=== PATIENT | male | born 1995 | race Caucasian/White ===

== ENCOUNTER 2018-11-05 12:52 | Emergency (ER) | payer OTHER ==
[~2018-11-05] VITALS: Ht 167.6 cm; Wt 69.5 kg
[2018-11-05] MEDS ORDERED: DiphenhydrAMINE HCL 25 MG CAPSULE PO ONE (13:00)
[2018-11-05 14:39] VITALS: BP 108/65
[2018-11-05] MEDS ORDERED: PredniSONE 20 MG TABLET PO ONE (14:45)
== END 2018-11-05 14:59 | disposition home or self-care (01) ==
LOC: EMS 12:58
DX: R21 Rash and other nonspecific skin eruption (principal); T78.40XA Allergy, unspecified, initial encounter; X58.XXXA Exposure to other specified factors, initial encounter
CPT/HCPCS: 99283; J7512